=== PATIENT | female | born 1950 | race Caucasian/White ===

== ENCOUNTER → 2016-11-28 | Outpatient (CLI) | payer MEDICARE ==
[~2016-11-28] MED LIST: BORO3CAP PO; CALC-176 PO; COPP2CAP PO; FLAXPOW PO; MAGN250T11 PO; VITA-122 PO; VITA40TA PO; VITATAB11 PO; [UNRECOGNIZED DRUG - CODE] PO; [UNRECOGNIZED DRUG - OTHER] PO
--- NOTE | 2016-11-28 18:38 | REP ---
Esophagram The procedure was performed under the direct supervision of Dr. Smith. The images were reviewed with Dr. Smith. A single view PA chest x-ray is submitted as a manager respiratory film. The superior mediastinal structures are midline. The heart size is within normal limits. The lungs are clear. Liquid barium and gas producing granules were given in the erect position as well as liquid barium in the prone oblique positions in order to perform a double contrast esophagram examination. The oral and pharyngeal stages of deglutition are unremarkable. Esophageal transport is prompt and efficient and there is no esophagitis, stricture, or mucosal ring. There is a small sliding hiatal hernia. Gastroesophageal reflux is not demonstrated on this examination. Impression: There is a small sliding hiatal hernia, otherwise unremarkable double contrast esophagram examination. 1 minute and 18 seconds of fluoro time was utilized for this procedure. Reviewed by LOWELL Razo 11/28/2016 02:18 PSigned by Francisco Javier Smith MD 11/28/2016 06:30 P
== END ==
LOC: M RAD 08:54
PROVIDERS: ATTEND Otolaryngology
DX: R13.10 Dysphagia, unspecified (principal); K44.9 Diaphragmatic hernia without obstruction or gangrene

== ENCOUNTER 2017-02-07 11:26 | Day surgery (SDC) | payer MEDICARE ==
[~2017-02-07] VITALS: Ht 154.9 cm; Wt 46.3 kg
[2017-02-07] MEDS ORDERED: NS 1,000 ML IV ONE (12:00)
--- NOTE | 2017-02-07 14:55 | ROOR ---
Patient Name: Lisa Sheppard Procedure Date: 02/07/2017 2:30 PM Date of : 1950 Age: 66 Room: [facility] Gender: Female Note Status: Finalized Procedure: Upper GI endoscopy Indications: Abdominal pain in the left upper quadrant, Heartburn, Globus sensation Providers: Lino PHAM MD Referring MD: ASAEL GOTTI Requesting Provider: Medicines: Monitored Anesthesia Care Complications: No immediate complications. Procedure: Pre-Anesthesia Assessment: - The heart rate, respiratory rate, oxygen saturations, blood pressure, adequacy of pulmonary ventilation, and response to care were monitored throughout the procedure. The Endoscope was introduced through the mouth, and advanced to the second part of duodenum. The upper GI endoscopy was accomplished without difficulty. The patient tolerated the procedure well. Findings: Diffuse mild inflammation characterized by erythema was found in the gastric antrum. Biopsies were taken with a cold forceps for Helicobacter pylori testing. Very small (insignificant) Hiatal Hernia. large volume stomach sometimes seen in gastroparesis. The examined esophagus was normal. No endoscopic abnormality was evident in the esophagus to explain the patient's complaint of dysphagia. The examined duodenum was normal. Impression: - Minimal gastritis. Biopsied. - Very small (insignificant) Hiatal Hernia. - Normal esophagus. - No endoscopic esophageal abnormality to explain patient's dysphagia. - Normal examined duodenum. Recommendation: - Use Prilosec (omeprazole) 40 mg PO daily for 3 months. - (the script was sent to your pharmacy on file) In Addition: Your abdominal "cyst" mentioned on CT is only 11 mm in size and is not responsible for any abdominal pain. I would recommend the cyst be simply followed by a repeat CT in 4-6 months to assure stability/benign nature. Your abdominal pain is not related to the "cyst" and should be further evaluated by colonoscopy. I would also recommend a gastric emptying scan to evaluate gastroparesis as a cause for pain. Lino Pham MD Lino HPAM MD 02/07/2017 2:55:26 PM This report has been signed electronically. Number of Addenda: 0 Note Initiated On: 02/07/2017 2:30 PM Estimated Blood Loss: Estimated blood loss: none. Estimated blood loss: none.
[2017-02-07] MEDS ORDERED: LIDOCAINE 2% INJ 100 MG/5 ML SDV (FOR ANES.) As Ordered ONE (14:59)
[2017-02-07] MEDS ORDERED: PROPOFOL 200 MG/20 ML VIAL As Ordered ONE (14:59)
[2017-02-07 15:15] VITALS: BP 117/57
== END 2017-02-07 15:24 | disposition home or self-care (01) ==
LOC: M OPP 11:26
PROVIDERS: ATTEND Internal Medicine Gastroenterology
DX: F45.8 Other somatoform disorders (principal); K29.70 Gastritis, unspecified, without bleeding; R13.10 Dysphagia, unspecified; R10.12 Left upper quadrant pain; R12 Heartburn; K44.9 Diaphragmatic hernia without obstruction or gangrene; M50.30 Other cervical disc degeneration, unspecified cervical region; W57.XXXD Bitten or stung by nonvenomous insect and other nonvenomous arthropods, subsequent encounter; Z87.09 Personal history of other diseases of the respiratory system; Z79.899 Other long term (current) drug therapy; Z88.0 Allergy status to penicillin; Z88.1 Allergy status to other antibiotic agents; Y99.9 Unspecified external cause status

== ENCOUNTER 2017-03-07 07:35 | Day surgery (SDC) | payer MEDICARE ==
[~2017-03-07] VITALS: Ht 154.9 cm; Wt 46.3 kg
[~2017-03-07 07:35] MED LIST changes: +ASPI1TAB PO
[2017-03-07] MEDS ORDERED: NS 1,000 ML IV ONE (07:45)
[2017-03-07] MEDS ORDERED: LIDOCAINE 2% INJ 100 MG/5 ML SDV (FOR ANES.) As Ordered ONE (09:30)
[2017-03-07] MEDS ORDERED: PROPOFOL 200 MG/20 ML VIAL As Ordered ONE (09:30)
--- NOTE | 2017-03-07 10:04 | ROOR ---
Patient Name: Lisa Sheppard Procedure Date: 03/07/2017 9:45 AM Date of : 1950 Age: 67 Room: [id number] Gender: Female Note Status: Finalized Procedure: Colonoscopy Indications: Screening for colorectal malignant neoplasm Providers: Lino PHAM MD Referring MD: ASAEL GOTTI Requesting Provider: Medicines: Monitored Anesthesia Care Complications: No immediate complications. Procedure: Pre-Anesthesia Assessment: - The heart rate, respiratory rate, oxygen saturations, blood pressure, adequacy of pulmonary ventilation, and response to care were monitored throughout the procedure. The Colonoscope was introduced through the anus and advanced to 8 cm into the ileum. The colonoscopy was performed without difficulty. The patient tolerated the procedure well. The quality of the bowel preparation was good. Findings: The perianal and digital rectal examinations were normal. The colon was redundant. The entire examined colon appeared normal on direct and retroflexion views. The terminal ileum appeared normal. (Exam: Complete, Prep: Good or Excellent.) Impression: - The entire examined colon is normal on direct and retroflexion views. - The examined portion of the ileum was normal. - No specimens collected. Recommendation: - Repeat colonoscopy in 10 years for screening purposes. Lino Pham MD Lino PHMA MD 03/07/2017 10:04:06 AM This report has been signed electronically. Number of Addenda: 0 Note Initiated On: 03/07/2017 9:45 AM Estimated Blood Loss: Estimated blood loss: none.
[2017-03-07 10:20] VITALS: BP 97/56
== END 2017-03-07 11:05 | disposition home or self-care (01) ==
LOC: M OPP 07:35
PROVIDERS: ATTEND Internal Medicine Gastroenterology
DX: Z12.11 Encounter for screening for malignant neoplasm of colon (principal); Q43.8 Other specified congenital malformations of intestine; R00.2 Palpitations; K44.9 Diaphragmatic hernia without obstruction or gangrene; R12 Heartburn; K21.9 Gastro-esophageal reflux disease without esophagitis; M19.90 Unspecified osteoarthritis, unspecified site; M51.9 Unspecified thoracic, thoracolumbar and lumbosacral intervertebral disc disorder; M25.60 Stiffness of unspecified joint, not elsewhere classified; M81.0 Age-related osteoporosis without current pathological fracture; Z78.0 Asymptomatic menopausal state; J44.9 Chronic obstructive pulmonary disease, unspecified; M43.02 Spondylolysis, cervical region; Z88.1 Allergy status to other antibiotic agents; Z88.0 Allergy status to penicillin; Z88.2 Allergy status to sulfonamides; Z79.82 Long term (current) use of aspirin; Z79.899 Other long term (current) drug therapy

== ENCOUNTER → 2017-04-25 | Outpatient (CLI) | payer MEDICARE | LOC: M WHC 12:57 | DX: M81.0 Age-related osteoporosis without current pathological fracture (principal) | CPT/HCPCS: 77080 ==

== ENCOUNTER → 2017-12-19 | Outpatient (CLI) | payer MEDICARE ==
[2017-12-19 16:45] LABS: ERYTHROCYTE SEDIMENTATION RATE 8 mm/hr (0-30)
[2017-12-19 17:05] LABS: C REACTIVE PROTEIN QUANTITATIV < 0.30 MG/DL (0.00-0.30); TOTAL PROTEIN 6.9 GM/DL (6.4-8.2)
[2017-12-21 14:23] LABS: ANTINUCLEAR ANTIBODIES DIRECT Negative (Negative)
[2017-12-23 13:30] LABS: ALBUMIN 4.28 GM/DL (3.29-5.55); ALBUMIN % 62.1 % (55.8-66.1); ALPHA-1-GLOBULIN % 4.2 % (2.9-4.9); ALPHA-1-GLOBULINS 0.29 GM/DL (0.17-0.41); ALPHA-2-GLOBULINS % 10.2 % (7.1-11.8); BETA-1-GLOBULINS 0.43 GM/DL (0.28-0.60); BETA-1-GLOBULINS % 6.2 % (4.7-7.2); BETA-2-GLOBULINS 0.32 GM/DL (0.19-0.55); BETA-2-GLOBULINS % 4.7 % (3.2-6.5); GAMMA GLOBULIN % 12.6 % (11.1-18.8); GAMMA GLOBULINS 0.87 GM/DL (0.65-1.58)
== END ==
LOC: M LAB 13:56
DX: D72.821 Monocytosis (symptomatic) (principal); M13.0 Polyarthritis, unspecified
CPT/HCPCS: 84165

== ENCOUNTER 2017-12-23 09:38 | Outpatient (RCR) | payer MEDICARE | END 2018-01-22 | LOC: M PT 09:38 | DX: R42 Dizziness and giddiness (principal) | CPT/HCPCS: 97112 ==

== ENCOUNTER → 2018-01-15 | Outpatient (CLI) | payer MEDICARE ==
[2018-01-15 13:36] LABS: BASO % 0.5 % (0.0-1.0); EOS # 0.2 10^3/uL (0.0-0.50); EOS % 2.7 % (0.0-3.0); HEMATOCRIT 39.4 % (36.0-47.0); HEMOGLOBIN 13.1 g/dl (12.0-15.5); IMMATURE GRANULOCYTE % 0.3 % (0-3.0); LYMPH # 1.5 10^3/uL (1.5-4.5); LYMPH % 23.8 % (24.0-44.0); MEAN CORPUSCULAR HEMOGLOBIN 32.1 pg (27.0-33.0); MEAN CORPUSCULAR HGB CONC 33.2 g/dl (32.0-36.5); MEAN CORPUSCULAR VOLUME 96.6 fl (80.0-96.0); MONO # 0.7 10^3/uL (0.0-0.8); MONO % 10.8 % (0.0-5.0); NEUTROPHILS # 3.9 10^3/uL (1.8-7.7); NEUTROPHILS % 61.9 % (36.0-66.0); PLATELET COUNT, AUTOMATED 260 10^3/uL (150-450); RED BLOOD COUNT 4.08 10^6/uL (4.00-5.40); RED CELL DISTRIBUTION WIDTH 12.8 % (11.5-14.5); WHITE BLOOD COUNT 6.3 10^3/uL (4.0-10.0)
[2018-01-15 13:50] LABS: APPEARANCE, URINE CLEAR (CLEAR); BACTERIA, URINE AUTO 1+ (NEGATIVE); BILIRUBIN, URINE AUTO NEGATIVE (NEGATIVE); BLOOD, URINE BLOOD 2+ (NEGATIVE); COLOR, URINE YELLOW (YELLOW); GLUCOSE, URINE (UA) AUTO NEGATIVE (NEGATIVE); KETONE, URINE AUTO NEGATIVE (NEGATIVE); LEUKOCYTE ESTERASE, URINE AUTO TRACE (NEGATIVE); MUCUS, URINE SMALL (NEGATIVE); NITRITE, URINE AUTO NEGATIVE (NEGATIVE); PROTEIN, URINE AUTO NEGATIVE (NEGATIVE); RBC, URINE AUTO 6 /HPF (0-3); SPECIFIC GRAVITY URINE AUTO 1.018 (1.002-1.035); SQUAMOUS EPITHELIAL CELL UR AU 0 /HPF (0-6); UROBILINOGEN, URINE AUTO 0.2 mg/dL (0.0-2.0); WBC, URINE AUTO 2 /HPF (0-3)
[2018-01-15 14:06] LABS: ALBUMIN 3.8 GM/DL (3.2-5.2); ALBUMIN/GLOBULIN RATIO 1.31 (1.00-1.93); ALKALINE PHOSPHATASE 84 U/L (45-117); ALT/SGPT 21 U/L (12-78); ANION GAP 4 MEQ/L (8-16); AST/SGOT 18 U/L (7-37); BILIRUBIN,TOTAL 0.3 MG/DL (0.2-1.0); BLOOD UREA NITROGEN 21 MG/DL (7-18); CALCIUM LEVEL 9.2 MG/DL (8.8-10.2); CARBON DIOXIDE LEVEL 31 MEQ/L (21-32); CHLORIDE LEVEL 107 MEQ/L (98-107); CREATININE FOR GFR 0.73 MG/DL (0.55-1.30); GLOMERULAR FILTRATION RATE > 60.0 (>45); GLUCOSE, FASTING 88 MG/DL (70-100); POTASSIUM SERUM 4.5 MEQ/L (3.5-5.1); SODIUM LEVEL 142 MEQ/L (136-145); TOTAL PROTEIN 6.7 GM/DL (6.4-8.2)
== END ==
LOC: M LAB 13:02
DX: D72.821 Monocytosis (symptomatic) (principal); R77.1 Abnormality of globulin; N30.01 Acute cystitis with hematuria
CPT/HCPCS: 80053

== ENCOUNTER → 2018-08-07 | Outpatient (CLI) | payer MEDICARE ==
[~2018-08-07] MED LIST changes: -ASPI1TAB PO; +ASPI81TA26 PO
[2018-08-07 13:47] LABS: IONIZED CALCIUM 4.7 MG/DL (4.5-5.3)
[2018-08-07 13:55] LABS: APPEARANCE, URINE CLEAR (CLEAR); BACTERIA, URINE AUTO NEGATIVE (NEGATIVE); BILIRUBIN, URINE AUTO NEGATIVE (NEGATIVE); BLOOD, URINE BLOOD 2+ (NEGATIVE); COLOR, URINE YELLOW (YELLOW); GLUCOSE, URINE (UA) AUTO NEGATIVE (NEGATIVE); KETONE, URINE AUTO NEGATIVE (NEGATIVE); LEUKOCYTE ESTERASE, URINE AUTO NEGATIVE (NEGATIVE); MUCUS, URINE SMALL (NEGATIVE); NITRITE, URINE AUTO NEGATIVE (NEGATIVE); PROTEIN, URINE AUTO NEGATIVE (NEGATIVE); RBC, URINE AUTO 4 /HPF (0-3); SPECIFIC GRAVITY URINE AUTO 1.021 (1.002-1.035); SQUAMOUS EPITHELIAL CELL UR AU 0 /HPF (0-6); UROBILINOGEN, URINE AUTO 0.2 mg/dL (0.0-2.0); WBC, URINE AUTO 1 /HPF (0-3)
[2018-08-07 14:28] LABS: ALBUMIN 3.6 GM/DL (3.2-5.2); ALT/SGPT 21 U/L (12-78); BILIRUBIN,TOTAL 0.3 MG/DL (0.2-1.0); BLOOD UREA NITROGEN 20 MG/DL (7-18); CALCIUM LEVEL 8.8 MG/DL (8.8-10.2); CARBON DIOXIDE LEVEL 32 MEQ/L (21-32); CHLORIDE LEVEL 104 MEQ/L (98-107); CREATININE FOR GFR 0.78 MG/DL (0.55-1.30); GLOMERULAR FILTRATION RATE > 60.0 (>45); GLUCOSE, FASTING 87 MG/DL (70-100); MAGNESIUM LEVEL 2.4 MG/DL (1.8-2.4); POTASSIUM SERUM 4.3 MEQ/L (3.5-5.1); SODIUM LEVEL 140 MEQ/L (136-145); TOTAL PROTEIN 6.9 GM/DL (6.4-8.2)
== END ==
LOC: M LAB 13:20
PROVIDERS: ATTEND Family Medicine
DX: R31.9 Hematuria, unspecified (principal); M81.0 Age-related osteoporosis without current pathological fracture; R53.82 Chronic fatigue, unspecified

== ENCOUNTER 2018-08-24 03:03 | Emergency (ER) | payer MEDICARE ==
[~2018-08-24] VITALS: Ht 157.5 cm; Wt 47.3 kg
[2018-08-24] MEDS ORDERED: CLEO300C2 PO (03:13)
[2018-08-24 05:29] LABS: BASO % 0.8 % (0.0-1.0); EOS # 0.2 10^3/uL (0.0-0.50); HEMATOCRIT 39.2 % (36.0-47.0); HEMOGLOBIN 13.2 g/dl (12.0-15.5); LYMPH # 1.4 10^3/uL (1.5-4.5); LYMPH % 27.9 % (24.0-44.0); MEAN CORPUSCULAR HEMOGLOBIN 32.3 pg (27.0-33.0); MEAN CORPUSCULAR HGB CONC 33.7 g/dl (32.0-36.5); MEAN CORPUSCULAR VOLUME 95.8 fl (80.0-96.0); MONO # 0.8 10^3/uL (0.0-0.8); MONO % 16.5 % (0.0-5.0); NEUTROPHILS # 2.6 10^3/uL (1.8-7.7); NEUTROPHILS % 51.6 % (36.0-66.0); PLATELET COUNT, AUTOMATED 253 10^3/uL (150-450); RED BLOOD COUNT 4.09 10^6/uL (4.00-5.40)
[2018-08-24 05:59] LABS: BLOOD UREA NITROGEN 22 MG/DL (7-18); CALCIUM LEVEL 8.8 MG/DL (8.8-10.2); CARBON DIOXIDE LEVEL 28 MEQ/L (21-32); CHLORIDE LEVEL 106 MEQ/L (98-107); CPK CREATINE PHOSPHOKINASE 48 U/L (26-192); CREATININE FOR GFR 0.76 MG/DL (0.55-1.30); GLOMERULAR FILTRATION RATE > 60.0 (>45); GLUCOSE, FASTING 77 MG/DL (70-100); MB/CK RELATIVE INDEX 2.08 (< OR =4); POTASSIUM SERUM 3.7 MEQ/L (3.5-5.1); SODIUM LEVEL 143 MEQ/L (136-145); TROPONIN I < 0.02 NG/ML (< 0.10)
[2018-08-24] MEDS ORDERED: NS 1,000 ML IV ONE (06:15)
[2018-08-24 06:28] LABS: C REACTIVE PROTEIN QUANTITATIV < 0.30 MG/DL (0.00-0.30)
--- NOTE | 2018-08-24 06:41 | ECGEPIP ---
[facility] - ED Test Date: 2018-08-24 Pat Name: SAMY GAMEZ Department: Room: - Gender: Female Communications Project Lead: PORSHA : 1950 Requested By: HUMERA Farrar Order Number: [id number] Reading MD: Diego López Measurements Intervals Kathryn Rate: 58 P: 70 TN: 152 QRS: 50 QRSD: 86 T: 53 QT: 421 QTc: 416 Interpretive Statements SINUS BRADYCARDIA LOW QRS VOLTAGE IN EXTREMITY LEADS DELAYED R WAVE PROGRESSION NONSPECIFIC ST T WAVE CHANGES NO OLD ECG FOR COMPARISON Electronically Signed on 08-24-2018 6:41:21 EDT by Diego López
[2018-08-24 06:59] LABS: ERYTHROCYTE SEDIMENTATION RATE 15 mm/hr (0-30)
[2018-08-24 08:01] VITALS: BP 150/66
== END 2018-08-24 08:23 | disposition home or self-care (01) ==
LOC: M ED 03:03
DX: K04.7 Periapical abscess without sinus (principal); E86.0 Dehydration

== ENCOUNTER → 2018-11-03 | Outpatient (REF) | payer MEDICARE ==
[~2018-11-03] MED LIST changes: +CLEO300C2 PO
== END ==
LOC: M SFHCPLAZ 16:17
PROVIDERS: ATTEND Nurse Practitioner Family
DX: R19.7 Diarrhea, unspecified (principal)

== ENCOUNTER → 2019-06-23 | Outpatient (REF) | payer MEDICARE ==
[2019-06-23 13:48] LABS: APPEARANCE, URINE CLEAR (CLEAR); BACTERIA, URINE AUTO NEGATIVE (NEGATIVE); BILIRUBIN, URINE AUTO NEGATIVE (NEGATIVE); BLOOD, URINE BLOOD 1+ (NEGATIVE); COLOR, URINE YELLOW (YELLOW); GLUCOSE, URINE (UA) AUTO NEGATIVE (NEGATIVE); KETONE, URINE AUTO NEGATIVE (NEGATIVE); LEUKOCYTE ESTERASE, URINE AUTO NEGATIVE (NEGATIVE); MUCUS, URINE SMALL (NEGATIVE); NITRITE, URINE AUTO NEGATIVE (NEGATIVE); PROTEIN, URINE AUTO NEGATIVE (NEGATIVE); RBC, URINE AUTO 14 /HPF (0-3); SQUAMOUS EPITHELIAL CELL UR AU 0 /HPF (0-6); UROBILINOGEN, URINE AUTO 0.2 mg/dL (0.0-2.0); WBC, URINE AUTO 1 /HPF (0-3)
== END ==
LOC: M SMT 13:13
PROVIDERS: ATTEND Nurse Practitioner Women's Health
DX: R31.29 Other microscopic hematuria (principal)

== ENCOUNTER → 2019-06-29 | Outpatient (CLI) | payer MEDICARE ==
[2019-06-29 15:28] LABS: BLOOD UREA NITROGEN 22 MG/DL (7-18); CALCIUM LEVEL 8.7 MG/DL (8.8-10.2); CARBON DIOXIDE LEVEL 31 MEQ/L (21-32); CHLORIDE LEVEL 104 MEQ/L (98-107); CREATININE FOR GFR 0.82 MG/DL (0.55-1.30); GLOMERULAR FILTRATION RATE > 60.0 (>45); GLUCOSE, FASTING 93 MG/DL (70-100); POTASSIUM SERUM 4.2 MEQ/L (3.5-5.1); SODIUM LEVEL 140 MEQ/L (136-145)
== END ==
LOC: M LAB 14:08
PROVIDERS: ATTEND Nurse Practitioner Women's Health
DX: R31.29 Other microscopic hematuria (principal)
CPT/HCPCS: 36415; 80048; G0463

== ENCOUNTER → 2019-06-30 | Outpatient (CLI) | payer MEDICARE ==
[~2019-06-30] MED LIST changes: +ISOVUE-370 76% 100ML VIAL (Q9967) As Ordered ONE
--- NOTE | 2019-06-30 09:37 | REP ---
REASON: Microscopic hematuria. PRIORS: None. CONTRAST: 100 mL of Isovue 370. CT urography was also performed with post-processing rendering MIP 3D images of the renal collecting system bilaterally. The precontrast enhanced portion of the examination shows no evidence of nephroureterolithiasis, hydronephrosis, or hydroureter. There are no urinary bladder calcifications. There are surgical clips in the gallbladder fossa from previous cholecystectomy. There is a low density lesion in the interpolar region of the right kidney projecting laterally and measures approximately 1.2 cm. This has slightly higher than water density Hounsfield unit readings. Postcontrast enhanced portion of the examination shows the liver, adrenal glands, and left kidney to be unremarkable. There is dilatation of the intrapancreatic duct which measures approximately 4 mm. There is no discernible pancreatic mass. The aforementioned low density lesion in the right kidney has higher postcontrast Hounsfield unit readings, however, they are not of high enough density to show definitive contrast enhancement. The abdominal aorta and para-aortic regions are within normal limits for the bowel loops and their mesenteries are within normal limits. There is no free fluid or free air. CT PELVIS: The bowel loops and their mesenteries are within normal limits. In the left hemipelvic, there is a round 2.4 cm sized low density structure that has near water density Hounsfield unit readings. There is no pelvic adenopathy. There is no free pelvic fluid or air. Bone window technique throughout the examination shows the osseous structures to be within normal limits. CT urogram shows opacification of both renal collecting systems without abnormal filling defect, hydronephrosis, or luminal narrowing. The opacified portion of the urinary bladder is within normal limits showing no evidence of mass lesion. IMPRESSION: 1. Indeterminate right renal cystic structure as described above. Pre-and post gadolinium enhanced renal MRI should be considered at this time for further evaluation. 2. Dilatation of the intrapancreatic duct of uncertain etiology. Pre- and post gadolinium enhanced pancreatic MRI is recommended with MRCP. Those studies should be performed as two dedicated independent exams. 3. Cystic structure left hemipelvis as described above likely a small left ovarian cyst. Consider pelvic ultrasound for further evaluation. 4. CT urogram with normal appearance as described above. Electronically Signed by Bebteo Villalta DO 06/30/2019 11:38 A
== END ==
LOC: M RAD 07:18
PROVIDERS: ATTEND Nurse Practitioner Women's Health
DX: R31.29 Other microscopic hematuria (principal); N28.1 Cyst of kidney, acquired
CPT/HCPCS: 74178; Q9967

== ENCOUNTER → 2020-11-14 | Outpatient (CLI) | payer MEDICARE, OTHER ==
[~2020-11-14] MED LIST changes: -ISOVUE-370 76% 100ML VIAL (Q9967) As Ordered ONE
--- NOTE | 2020-11-14 15:06 | REP ---
INDICATION: ENCNTR FOR GENERAL ADULT MEDICAL EXAM W/O ABNORMAL FINDINGS. COMPARISON: None TECHNIQUE: AP frog-lateral views FINDINGS: There is slight symmetric hip joint space narrowing without prominent marginal osteophytosis, buttressing, fracture, or dislocation. IMPRESSION: Mild age-related degenerative changes. <Electronically signed by Bebeto Villalta > 11/14/20 [id number]
--- NOTE | 2020-11-14 15:06 | REP ---
INDICATION: ENCNTR FOR GENERAL ADULT MEDICAL EXAM W/O ABNORMAL FINDINGS COMPARISON: None TECHNIQUE: Five views FINDINGS: The compartments are symmetric and well maintained. There is no acute fracture, dislocation, or subluxation. There is no destructive osseous lesion. IMPRESSION: Within normal limits <Electronically signed by Bebeto Villalta > 11/14/20 [id number]
[2020-11-14 17:37] LABS: BASO % 0.6 % (0.0-1.0); EOS # 0.2 10^3/uL (0.0-0.5); EOS % 2.7 % (0.0-3.0); HEMATOCRIT 39.3 % (36.0-47.0); LYMPH # 1.9 10^3/uL (1.5-5.0); LYMPH % 29.5 % (24.0-44.0); MEAN CORPUSCULAR HEMOGLOBIN 31.9 pg (27.0-33.0); MEAN CORPUSCULAR HGB CONC 33.1 g/dl (32.0-36.5); MEAN CORPUSCULAR VOLUME 96.6 fl (80.0-96.0); MONO # 0.7 10^3/uL (0.0-0.8); MONO % 10.8 % (2.0-8.0); NEUTROPHILS # 3.5 10^3/uL (1.5-8.5); NEUTROPHILS % 56.2 % (36.0-66.0); PLATELET COUNT, AUTOMATED 263 10^3/uL (150-450); RED BLOOD COUNT 4.07 10^6/uL (4.00-5.40); WHITE BLOOD COUNT 6.3 10^3/uL (4.0-10.0)
[2020-11-14 17:40] LABS: APPEARANCE, URINE HAZY (CLEAR); BACTERIA, URINE AUTO NEGATIVE (NEGATIVE); BILIRUBIN, URINE AUTO NEGATIVE (NEGATIVE); BLOOD, URINE BLOOD NEGATIVE (NEGATIVE); COLOR, URINE YELLOW (YELLOW); GLUCOSE, URINE (UA) AUTO NEGATIVE (NEGATIVE); KETONE, URINE AUTO NEGATIVE (NEGATIVE); LEUKOCYTE ESTERASE, URINE AUTO NEGATIVE (NEGATIVE); MUCUS, URINE SMALL (NEGATIVE); NITRITE, URINE AUTO NEGATIVE (NEGATIVE); PROTEIN, URINE AUTO NEGATIVE (NEGATIVE); RBC, URINE AUTO 4 /HPF (0-3); SPECIFIC GRAVITY URINE AUTO 1.023 (1.002-1.035); SQUAMOUS EPITHELIAL CELL UR AU 0 /HPF (0-6); UROBILINOGEN, URINE AUTO 0.2 mg/dL (0.0-2.0); WBC, URINE AUTO 2 /HPF (0-3)
[2020-11-14 17:58] LABS: ALBUMIN 3.3 GM/DL (3.2-5.2); ALT/SGPT 21 U/L (12-78); BILIRUBIN,TOTAL 0.3 MG/DL (0.2-1.0); BLOOD UREA NITROGEN 20 MG/DL (7-18); CALCIUM LEVEL 8.5 MG/DL (8.8-10.2); CARBON DIOXIDE LEVEL 33 MEQ/L (21-32); CHLORIDE LEVEL 109 MEQ/L (98-107); CHOLESTEROL LEVEL 223 MG/DL (<200); CREATININE FOR GFR 0.91 MG/DL (0.55-1.30); GLOMERULAR FILTRATION RATE > 60.0 (>39); GLUCOSE, FASTING 115 MG/DL (70-100); HDL CHOLESTEROL 71 MG/DL (>40); LDL CHOLESTEROL 122 MG/DL (<100); NON-HDL-C 152 MG/DL; POTASSIUM SERUM 4.2 MEQ/L (3.5-5.1); SODIUM LEVEL 143 MEQ/L (136-145); TOTAL PROTEIN 6.4 GM/DL (6.4-8.2); TRIGLYCERIDES LEVEL 151 MG/DL (<150)
[2020-11-14 18:01] LABS: TOTAL 25(OH) VITAMIN D 44.3 NG/ML (30.0-100.0)
== END ==
LOC: M PLAIMG 13:56
PROVIDERS: ATTEND Physician Assistant
DX: E55.9 Vitamin D deficiency, unspecified (principal); D72.821 Monocytosis (symptomatic); E78.2 Mixed hyperlipidemia; R31.29 Other microscopic hematuria; M25.551 Pain in right hip; M25.561 Pain in right knee

== ENCOUNTER → 2021-01-06 | Outpatient (CLI) | payer MEDICARE, OTHER ==
--- NOTE | 2021-01-06 11:11 | REP ---
INDICATION: LOW SET AP PELVIC WB PAIN IN RT HIP. COMPARISON: None. TECHNIQUE: Standing AP pelvis. FINDINGS: There is mild to moderate symmetric appearing right hip joint space narrowing and mild symmetric appearing left hip joint space narrowing. There is no buttressing. There is no fracture, dislocation, or subluxation. IMPRESSION: Degenerative changes as described above. <Electronically signed by Bebeto Villalta > 01/06/21 [id number]
== END ==
LOC: M SOG 08:21
PROVIDERS: ATTEND Orthopaedic Surgery Adult Reconstructive Orthopaedic Surgery
DX: M25.551 Pain in right hip (principal); M16.11 Unilateral primary osteoarthritis, right hip

== ENCOUNTER → 2021-01-16 | Outpatient (CLI) | payer MEDICARE, OTHER ==
--- NOTE | 2021-01-16 15:17 | REP ---
INDICATION: OTHER SPECIFIED CONGENITAL MALFORMATIONS OF INTESTINE. COMPARISON: None. FINDINGS: KUB shows the intestinal gas pattern to be nonspecific. The organ silhouettes insofar as delineated are unremarkable. There is no evidence of free intraperitoneal air. There is a moderate amount of stool seen in the descending colon IMPRESSION: Nonspecific. <Electronically signed by Bebeto Villalta > 01/16/21 [id number]
[2021-01-16 20:00] LABS: HEMOGLOBIN A1c 5.7 %
== END ==
LOC: M PLAIMG 13:21
PROVIDERS: ATTEND Nurse Practitioner Adult Health
DX: R73.9 Hyperglycemia, unspecified (principal); Q43.8 Other specified congenital malformations of intestine

== ENCOUNTER → 2021-02-14 | Outpatient (CLI) | payer MEDICARE, OTHER ==
--- NOTE | 2021-02-14 10:28 | REP ---
INDICATION: LT WRIST PAIN. COMPARISON: None. TECHNIQUE: AP, lateral, oblique views of the left wrist FINDINGS: Moderate focal arthritic changes primarily noted at the 1st and 2nd carpometacarpal joints. Findings include periarticular sclerosis, joint space narrowing, and small amounts of adjacent heterotopic calcification in the soft tissue which may be related to old injury. No acute fracture or dislocation remainder of the examination is essentially age-appropriate. IMPRESSION: Moderate arthritic changes primarily involving the 1st and 2nd carpometacarpal joints. <Electronically signed by Marky Moore > 02/14/21 [id number]
== END ==
LOC: M SOG 09:53
PROVIDERS: ATTEND Orthopaedic Surgery
DX: M25.532 Pain in left wrist (principal); M19.032 Primary osteoarthritis, left wrist

== ENCOUNTER → 2021-03-09 | Outpatient (CLI) | payer MEDICARE, OTHER ==
--- NOTE | 2021-03-09 15:28 | REP ---
INDICATION: LT WRIST PAIN ? GANGLION CYST. COMPARISON: None. TECHNIQUE: Axial T1. Coronal fat suppressed proton density, fat suppressed T2, and T1 multi-gradient. Sagittal T2 and T2 STIR. FINDINGS: Seen between the tendons of the abductor pollicis longus and flexor carpi radialis muscles there is a 1.6 x 1.1 x 0.7 cm sized irregular area of intense T1 and T2 prolongation. There are focal areas of T1 and T2 prolongation scattered throughout multiple carpal bones, particularly the lunate and distal pole of scaphoid. There is diffuse T2 hyper signal in the trapezium and base of the 1st metacarpal. There is joint space narrowing osteophytosis involving the 1st carpal/metacarpal joint. There is no abnormal anterior bowing of the flexor retinaculum. There is no abnormal signal in the imaged portion of the median nerve. Normal appearing low signal is seen throughout all imaged flexor and extensor tendons. Increased fluid is seen surrounding the distal aspect of the abductor pollicis longus tendon. The signal throughout the triangular fibrocartilage complex appears to be within normal limits. There is no abnormal fluid in the distal radioulnar joint. The scapholunate and lunatotriquetral ligaments are intact. IMPRESSION: 1. There is an irregular cyst in the ventral lateral soft tissues, as described above, suspicious for a ganglion cyst. Exact etiology is uncertain. 2. There is increased fluid seen surrounding the abductor pollicis longus tendon just proximal to the 1st carpal metacarpal joint suggestive of focal More synovitis. This should be correlated clinically. 3. Degenerative changes as described above. <Electronically signed by Bebeto Villalta > 03/09/21 [id number]
== END ==
LOC: M RAD 12:48
PROVIDERS: ATTEND Orthopaedic Surgery
DX: M67.432 Ganglion, left wrist (principal)

== ENCOUNTER → 2021-09-21 | Outpatient (REF) | payer MEDICARE, OTHER ==
[2021-09-21 13:55] LABS: APPEARANCE, URINE HAZY (CLEAR); BACTERIA, URINE AUTO 1+ (NEGATIVE); BILIRUBIN, URINE AUTO NEGATIVE (NEGATIVE); BLOOD, URINE BLOOD 2+ (NEGATIVE); COLOR, URINE YELLOW (YELLOW); GLUCOSE, URINE (UA) AUTO NEGATIVE (NEGATIVE); KETONE, URINE AUTO NEGATIVE (NEGATIVE); LEUKOCYTE ESTERASE, URINE AUTO 2+ (NEGATIVE); MUCUS, URINE SMALL (NEGATIVE); NITRITE, URINE AUTO NEGATIVE (NEGATIVE); PROTEIN, URINE AUTO NEGATIVE (NEGATIVE); RBC, URINE AUTO 7 /HPF (0-3); SPECIFIC GRAVITY URINE AUTO 1.023 (1.002-1.035); SQUAMOUS EPITHELIAL CELL UR AU 1 /HPF (0-6); TRANSITIONAL EPITHELIAL AUTO 1 /HPF; UROBILINOGEN, URINE AUTO 0.2 mg/dL (0.0-2.0); WBC, URINE AUTO 5 /HPF (0-3)
== END ==
LOC: M SFHCPLAZ 12:55
PROVIDERS: ATTEND Nurse Practitioner Adult Health
DX: R31.29 Other microscopic hematuria (principal)

== ENCOUNTER → 2021-09-24 | Outpatient (CLI) | payer MEDICARE, OTHER | LOC: M WHC 07:45 | PROVIDERS: ATTEND Nurse Practitioner Adult Health | DX: M81.0 Age-related osteoporosis without current pathological fracture (principal); Z12.31 Encounter for screening mammogram for malignant neoplasm of breast ==

== ENCOUNTER → 2021-09-28 | Outpatient (CLI) | payer MEDICARE, OTHER | LOC: M SOG 08:40 | PROVIDERS: ATTEND Orthopaedic Surgery Hand Surgery | DX: M19.032 Primary osteoarthritis, left wrist (principal) ==

== ENCOUNTER → 2021-09-28 | Outpatient (CLI) | payer MEDICARE, OTHER | LOC: M WHC 10:36 | PROVIDERS: ATTEND Nurse Practitioner Adult Health | DX: M81.0 Age-related osteoporosis without current pathological fracture (principal); M19.032 Primary osteoarthritis, left wrist ==

== ENCOUNTER → 2022-12-11 | Outpatient (REF) | payer MEDICARE, OTHER ==
[~2022-12-11] MED LIST changes: +IBUP200C33 PO
== END ==
LOC: M SFHCPLAZ 17:24
PROVIDERS: ATTEND Student in an Organized Health Care Education/Training Program
DX: N30.00 Acute cystitis without hematuria (principal)

== ENCOUNTER → 2022-12-26 | Outpatient (REF) | payer MEDICARE, OTHER | LOC: M LAB REF 16:09 | PROVIDERS: ATTEND Physician Assistant | DX: R30.0 Dysuria (principal) ==

== ENCOUNTER → 2023-01-04 | Outpatient (CLI) | payer MEDICARE, OTHER ==
[2023-01-08 15:08] LABS: HE4 70.3 pmol/L (0.0-96.9)
== END ==
LOC: M PLALAB 09:12
PROVIDERS: ATTEND Obstetrics & Gynecology
DX: N83.202 Unspecified ovarian cyst, left side (principal)

== ENCOUNTER → 2023-01-17 | Outpatient (CLI) | payer MEDICARE, OTHER | LOC: M WHC 06:50 | PROVIDERS: ATTEND Obstetrics & Gynecology | DX: N83.202 Unspecified ovarian cyst, left side (principal) ==

== ENCOUNTER → 2023-09-24 | Outpatient (REF) | payer MEDICARE, OTHER | LOC: M SFHCPLAZ 14:51 | PROVIDERS: ATTEND Physician Assistant Medical | DX: R30.0 Dysuria (principal) ==

== ENCOUNTER → 2023-11-05 | Outpatient (REF) | payer MEDICARE, OTHER | LOC: M LAB REF 12:42 | PROVIDERS: ATTEND Internal Medicine | DX: Z00.01 Encounter for general adult medical examination with abnormal findings (principal); R31.9 Hematuria, unspecified; R82.89 Other abnormal findings on cytological and histological examination of urine ==

== ENCOUNTER → 2023-11-08 | Outpatient (CLI) | payer MEDICARE, OTHER | LOC: M WHC 09:22 | PROVIDERS: ATTEND Internal Medicine | DX: Z12.31 Encounter for screening mammogram for malignant neoplasm of breast (principal); R92.333 Mammographic heterogeneous density, bilateral breasts; M81.0 Age-related osteoporosis without current pathological fracture; M85.852 Other specified disorders of bone density and structure, left thigh ==

== ENCOUNTER → 2023-11-19 | Outpatient (REF) | payer MEDICARE, OTHER | LOC: M LAB REF 11:33 | PROVIDERS: ATTEND Internal Medicine | DX: R35.81 Nocturnal polyuria (principal) ==

== ENCOUNTER → 2023-11-26 | Outpatient (REF) | payer MEDICARE, OTHER | LOC: M LAB REF 11:44 | PROVIDERS: ATTEND Internal Medicine | DX: R31.9 Hematuria, unspecified (principal) ==

== ENCOUNTER → 2023-12-03 | Outpatient (REF) | payer MEDICARE, OTHER | LOC: M LAB REF 12:48 | PROVIDERS: ATTEND Internal Medicine | DX: R31.9 Hematuria, unspecified (principal) ==

== ENCOUNTER → 2024-05-13 | Outpatient (REF) | payer MEDICARE, OTHER | LOC: M LAB REF 16:08 | PROVIDERS: ATTEND Internal Medicine | DX: R31.9 Hematuria, unspecified (principal) ==

== ENCOUNTER → 2024-05-20 | Outpatient (REF) | payer MEDICARE, OTHER | LOC: M LAB REF 12:34 | PROVIDERS: ATTEND Internal Medicine | DX: R31.9 Hematuria, unspecified (principal) ==

== ENCOUNTER → 2024-05-21 | Outpatient (CLI) | payer MEDICARE, OTHER ==
[~2024-05-21] MED LIST changes: +ISOVUE-370 76% 100ML VIAL As Ordered ONE
== END ==
LOC: M RAD 16:31
PROVIDERS: ATTEND Internal Medicine
DX: R31.9 Hematuria, unspecified (principal)
CPT/HCPCS: 74177; Q9967

== ENCOUNTER → 2024-05-27 | Outpatient (REF) | payer MEDICARE, OTHER ==
[~2024-05-27] MED LIST changes: -ISOVUE-370 76% 100ML VIAL As Ordered ONE
== END ==
LOC: M LAB REF 13:13
PROVIDERS: ATTEND Internal Medicine
DX: R31.9 Hematuria, unspecified (principal)

== ENCOUNTER 2024-07-10 07:11 | Day surgery (SDC) | payer MEDICARE, OTHER ==
[~2024-07-10] VITALS: Ht 154.9 cm; Wt 51.4 kg
[~2024-07-10 07:11] MED LIST changes: +CALC600T86 PO; +EQL50TAB2 PO; +GLUC500C37 PO; +PROBCAP14 PO; +RA M1000 PO; +VITA1CAP20 PO; +VITA200031 PO; +VITA500C24 PO; +ZINC7.5T PO; +[UNRECOGNIZED DRUG - CODE] PO; +[UNRECOGNIZED DRUG - CODE] PO
[2024-07-10] MEDS ORDERED: [UNRECOGNIZED DRUG - CODE] PO (07:49)
[2024-07-10] MEDS ORDERED: propofoL 200 MG/20 ML VIAL As Ordered ONE (08:17)
[2024-07-10] MEDS ORDERED: LIDOCAINE 2% 100MG/5ML SDV (FOR ANES.) As Ordered ONE (08:17)
[2024-07-10 08:31] VITALS: TEMP 98
[2024-07-10 08:59] VITALS: BP 109/55; O2SAT 100
== END 2024-07-10 09:14 | disposition home or self-care (01) ==
LOC: M OPP 07:11
PROVIDERS: ATTEND Surgery
DX: K44.9 Diaphragmatic hernia without obstruction or gangrene (principal); R13.10 Dysphagia, unspecified; Z88.0 Allergy status to penicillin; Z88.1 Allergy status to other antibiotic agents; Z88.2 Allergy status to sulfonamides; Z88.8 Allergy status to other drugs, medicaments and biological substances; Z79.899 Other long term (current) drug therapy; J44.9 Chronic obstructive pulmonary disease, unspecified

== ENCOUNTER 2024-10-10 11:19 | Emergency (ER) | payer MEDICARE, OTHER ==
[~2024-10-10] VITALS: Ht 157.5 cm; Wt 49.3 kg
[~2024-10-10 11:19] MED LIST changes: -EQL50TAB2 PO; +VITA1TAB82 PO
[2024-10-10 12:10] LABS: BASO # 0.1 10^3/uL (0.0-0.2); BASO % 0.8 % (0.0-1.0); EOS # 0.2 10^3/uL (0.0-0.5); EOS % 2.5 % (0.0-3.0); LYMPH # 2.1 10^3/uL (1.5-5.0); LYMPH % 35.1 % (24.0-44.0); MONO # 0.7 10^3/uL (0.0-0.8); MONO % 11.0 % (2.0-8.0); NEUTROPHILS # 3.0 10^3/uL (1.5-8.5); NEUTROPHILS % 50.4 % (36.0-66.0); PLATELET COUNT, AUTOMATED 277 10^3/uL (150-450)
[2024-10-10 12:11] LABS: KETONE, URINE AUTO RFX NEGATIVE (NEGATIVE); MUCUS, URINE RFX SMALL (NEGATIVE); NITRITE, URINE AUTO RFX NEGATIVE (NEGATIVE); RBC, URINE AUTO RFX 9 /HPF (0-3); SQUAM EPITHELIAL CELL UR AURFX 1 /HPF (0-6); WBC, URINE AUTO RFX 2 /HPF (0-3)
[2024-10-10 12:16] LABS: LEUKOCYTE ESTERASE UR AUTO RFX TRACE (NEGATIVE)
[2024-10-10 12:33] LABS: ALT/SGPT 15.0 U/L (7.0-40); AST/SGOT 27.0 U/L (<34)
[2024-10-10] MEDS: GASTROGRAFIN SOLUTION 30ML PO SCH (13:16)
[2024-10-10] MEDS ORDERED: ISOVUE-370 76% 100 ML VIAL As Ordered ONE (14:34)
[2024-10-10] MEDS ORDERED: MIRA3350 PO (16:44)
[2024-10-10 16:45] VITALS: BP 128/60; TEMP 97.5; O2SAT 98
== END 2024-10-10 16:57 | disposition home or self-care (01) ==
LOC: M ED 11:19
DX: N83.292 Other ovarian cyst, left side (principal); R10.9 Unspecified abdominal pain; K56.41 Fecal impaction; Z88.0 Allergy status to penicillin; Z88.1 Allergy status to other antibiotic agents; Z88.2 Allergy status to sulfonamides; Z88.8 Allergy status to other drugs, medicaments and biological substances; Z79.899 Other long term (current) drug therapy; Z79.810 Long term (current) use of selective estrogen receptor modulators (SERMs)
CPT/HCPCS: 36415; 74177; 80047; 80076; 81001; 83690; 85025; 87086; 99284; Q9963; Q9967

== ENCOUNTER → 2024-11-10 | Outpatient (CLI) | payer MEDICARE, OTHER ==
[~2024-11-10] MED LIST changes: +MIRA3350 PO
== END ==
LOC: M RAD 12:29
PROVIDERS: ATTEND Internal Medicine
DX: N83.292 Other ovarian cyst, left side (principal)